=== PATIENT | male | born 1950 | race Caucasian/White ===

== ENCOUNTER 2020-05-23 12:01 | Outpatient (RCR) | payer MEDICARE, SELFPAY ==
[2020-05-23] MEDS: COVID-19 VACC, MRNA(PFIZER)/PF 30 MCG/0.3 ML SYRINGE IM (13:43)
[2020-06-13] MEDS: COVID-19 VACC, MRNA(PFIZER)/PF 30 MCG/0.3 ML SYRINGE IM (13:38)
== END 2020-08-22 23:59 ==
LOC: IMMUN 12:01
PROVIDERS: PCP Nurse Practitioner Primary Care; Visit Provider Family Medicine
DX: Z23 Encounter for immunization (principal)
CPT/HCPCS: 0001A; 0002A; 91300